=== PATIENT | female | born 1955 | race Caucasian/White ===

== ENCOUNTER 2017-06-21 11:35 | Emergency (ER) | payer OTHER ==
[~2017-06-21] VITALS: Ht 165.1 cm; Wt 68.0 kg
[~2017-06-21 11:35] MED LIST: NKM
[2017-06-21 11:55] VITALS: BP 126/85
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
[2017-06-21] MEDS ORDERED: LORazepam Inj 2mg/ml 1ml IV ONE (12:00)
[2017-06-21] MEDS ORDERED: Morphine Sulfate 4mg/ml Inj IVP ONE (12:00)
[2017-06-21 12:23] LABS: BASOPHILS % (AUTO) 1.5 % (0.0-2.0); EOSINOPHILS % (AUTO) 2.6 % (0.0-3.0); LYMPHOCYTES % (AUTO) 26.1 % (20.0-45.0); MEAN CORPUSCULAR HEMOGLOBIN 32.2 PG (27.0-31.0); MEAN CORPUSCULAR VOLUME 95 FL (80-99); MEAN PLATELET VOLUME 6.7 FL (6.5-10.1); MONOCYTES % (AUTO) 7.1 % (1.0-10.0); NEUTROPHILS % (AUTO) 62.7 % (45.0-75.0); PLATELET COUNT 273 K/UL (150-450); RED BLOOD COUNT 3.93 M/UL (4.20-5.40); RED CELL DISTRIBUTION WIDTH 11.8 % (11.6-14.8); WHITE BLOOD COUNT 5.6 K/UL (4.8-10.8)
[2017-06-21 12:41] LABS: ALANINE AMINOTRANSFERASE 15 U/L (3-33); ALBUMIN/GLOBULIN RATIO 1.5 (1.0-2.7); ANION GAP 12 (5-15); ASPARTATE AMINO TRANSFERASE 28 U/L (5-40); CALCIUM 9.2 mg/dL (8.6-10.2); CARBON DIOXIDE 26 mEQ/L (20-30); CHLORIDE 100 mEQ/L (98-107); CREATININE 0.6 mg/dL (0.5-0.9); GLOMERULAR FILTRATION RATE > 60 mL/min (>60); HEMOLYSIS 1; LIPASE 31 U/L (< 60); POTASSIUM 3.8 mEQ/L (3.4-4.9); SODIUM 138 mEQ/L (135-145); TOTAL PROTEIN 7.1 g/dL (6.6-8.7)
[2017-06-21] MEDS ORDERED: REGLAN5 MG ORAL (13:46)
--- NOTE | 2017-06-21 13:51 | Diagnostic Imaging Report ---
Indications: Periumbilical lower abdominal pain Technique: Continuous helical CT imaging of the abdomen and pelvis was performed with automatic exposure control following administration of nonionic IV contrast only, on a Siemens sensation [address] scanner. Axial, coronal, sagittal images were reconstructed at 5 mm slice thickness. No oral contrast was administered per requesting physician's order, despite no contraindications listed. CTDI volume(s): 18 mGy Total DLP: 1036 mGy-cm Findings: Comparison: None Lack of oral contrast limits evaluation of gastrointestinal tract, nondilated throughout. Small hiatal hernia. Mild haziness throughout left abdominal mesentery. Mild mural thickening of one or more small bowel loops not excludable. Appendix unremarkable. No digital obvious mural thickening or adjacent stranding, extraluminal gas or fluid collections identified. Gallbladder distended. No obvious mural thickening or adjacent inflammation. Mild prominence of bile ducts without obvious associated stone or mass. 1 cm enhancing mass in anterior uterine myometrium. Liver, pancreas, spleen, adrenal glands, kidneys, unopacified ureters and urinary bladder, bilateral adnexal regions, vascular structures, retroperitoneum, mesentery, remainder visualized abdominopelvic anatomy unremarkable. Interstitial infiltrates and more discrete pleural-based linear densities and dependent portions both lung bases. Heart enlarged. L5-S1 disc space narrowing with marginal osteophyte formation, vacuum phenomenon.. IMPRESSION: Small bowel and mesenteric findings as described suggest mild enteritis. Gallbladder distention without obvious acute inflammation. Correlate clinically. Mild bile duct prominence without obvious obstructive etiology. Correlate clinically. No other evidence of acute abdominopelvic disease, with limitation as described. Subtle but potentially significant abnormalities the gastrointestinal tract may be missed. Repeat CT scan with full oral and IV contrast preparation recommended for more complete evaluation, as clinically indicated Oval small uterine fibroid Pulmonary bibasal subsegmental atelectasis, superimposed nonspecific interstitial infiltrates Cardiomegaly Degenerative spondylosis
[2017-06-21 14:00] VITALS: BP 158/79
[2017-06-21 14:15] VITALS: BP 158/79
== END 2017-06-21 14:15 | disposition home or self-care (01) ==
LOC: EDBD 11:35 → EMR 12:10
DX: R10.9 Unspecified abdominal pain (principal); R11.10 Vomiting, unspecified; R51 Headache; D25.9 Leiomyoma of uterus, unspecified; I51.7 Cardiomegaly; M47.9 Spondylosis, unspecified; J98.11 Atelectasis
CPT/HCPCS: 36415; 74177; 80053; 83690; 85025; 96374; 96375; 99284; J2270; J2405; Q9967

== ENCOUNTER 2017-07-05 10:55 | Emergency (ER) | payer OTHER ==
[~2017-07-05] VITALS: Ht 170.2 cm; Wt 61.2 kg
[~2017-07-05 10:55] MED LIST changes: +REGLAN5 MG ORAL
[2017-07-05] MEDS ORDERED: Acetaminophen 500mg (ES) tab PO ONE (11:15)
--- NOTE | 2017-07-05 12:33 | Diagnostic Imaging Report ---
Indication: Pain Comparison: None Findings: 3 views of the right foot were obtained. Bones are osteopenic. There is a bunion in the area of the first MTP joint. There is a mild hallux valgus deformity noted. Plantar calcaneal spur noted. There is no fracture identified. Impression: No acute injury identified.
[2017-07-05] MEDS ORDERED: TYLENOL EXTRA500 MG ORAL (12:42)
[2017-07-05 12:45] VITALS: BP 161/115
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
== END 2017-07-05 13:12 | disposition home or self-care (01) ==
LOC: EMR 11:10
DX: S90.211A Contusion of right great toe with damage to nail, initial encounter (principal); X58.XXXA Exposure to other specified factors, initial encounter; Y93.9 Activity, unspecified; Y99.9 Unspecified external cause status; M79.674 Pain in right toe(s); K29.70 Gastritis, unspecified, without bleeding
CPT/HCPCS: 99283

== ENCOUNTER 2017-08-08 11:17 | Emergency (ER) | payer OTHER ==
[~2017-08-08] VITALS: Ht 167.6 cm; Wt 61.2 kg
[~2017-08-08 11:17] MED LIST changes: +TYLENOL EXTRA500 MG ORAL
[2017-08-08] MEDS ORDERED: Acetaminophen 500mg (ES) tab PO ONE (12:00)
[2017-08-08] MEDS ORDERED: TYLENOL EXTRA500 MG ORAL (12:47)
[2017-08-08 13:05] VITALS: BP 120/80
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
--- NOTE | 2017-08-08 14:28 | Diagnostic Imaging Report ---
Indication: Pain Comparison: None Findings: 3 views of the right foot were obtained. No acute fractures, malalignment, erosions or periostitis are identified. Soft tissues are unremarkable. Outside is noted. Impression: No acute findings.
== END 2017-08-08 13:07 | disposition home or self-care (01) ==
LOC: EMR 11:50
DX: S90.31XA Contusion of right foot, initial encounter (principal); V09.9XXA Pedestrian injured in unspecified transport accident, initial encounter; Y93.9 Activity, unspecified; Y99.9 Unspecified external cause status; K29.70 Gastritis, unspecified, without bleeding; K21.9 Gastro-esophageal reflux disease without esophagitis
CPT/HCPCS: 99283

== ENCOUNTER 2017-08-29 08:44 | Emergency (ER) | payer OTHER ==
[~2017-08-29] VITALS: Ht 167.6 cm; Wt 59.0 kg
[2017-08-29] MEDS ORDERED: AMOXICILLIN500 MG ORAL (09:30)
--- NOTE | 2017-08-29 09:43 | Emergency Room Report ---
History of Present Illness General Chief Complaint: Upper Respiratory Illness Source: Patient, Medical Record Present Illness HPI 62-year-old female presents to ED for evaluation. States her last 3 days she's been having a cough with sore throat. Feels congested. Denies fevers or chills. States cough is productive with greenish sputum. Denies sick contacts or recent travel. Denies chest pain or shortness of breath. States that she did receive a flu vaccine last month. No other aggravating relieving factors. Denies any other associated symptoms Allergies: Coded Allergies: No Known Allergies (Unverified , 04/07/13) Patient History Past Medical History: GERD Past Surgical History: none Pertinent Family History: none Social History: Denies: smoking, alcohol use, drug use Last Menstrual Period: Post Now: No Immunizations: UTD Reviewed Nursing Documentation: PMH: Agreed, PSxH: Agreed Nursing Documentation-PMH Hx Cardiac Problems: No Hx Pacemaker: No Hx Asthma: Yes - Pneumonia Hx COPD: No Hx Diabetes: No Hx Cancer: No Hx Gastrointestinal Problems: Yes - Gastritis Hx Dialysis: No Hx Neurological Problems: No Hx Cerebrovascular Accident: No Hx Seizures: No Review of Systems All Other Systems: negative except mentioned in HPI Physical Exam Vital Signs Date Time Temp Pulse Resp B/P (MAP) Pulse Ox O2 Delivery O2 Flow Rate FiO2 08/29/17 08:47 99.3 101 21 154/90 97 Room Air Sp02 EP Interpretation: reviewed, normal General Appearance: no apparent distress, alert, GCS 15, non-toxic Head: normocephalic, atraumatic Eyes: bilateral eye normal inspection, bilateral eye PERRL ENT: hearing grossly normal, no angioedema, normal voice, TMs + canals normal, pharyngeal erythema, tonsillar exudate Neck: full range of motion, supple/symm/no masses Respiratory: chest non-tender, lungs clear, normal breath sounds, speaking full sentences Cardiovascular #1: regular rate, rhythm, no edema Cardiovascular #2: 2+ carotid (R), 2+ carotid (L), 2+ radial (R), 2+ radial (L) , 2+ dorsalis pedis (R), 2+ dorsalis pedis (L) Gastrointestinal: normal bowel sounds, non tender, soft, non-distended, no guarding, no rebound Rectal: deferred Genitourinary: normal inspection, no CVA tenderness Musculoskeletal: back normal, gait/station normal, normal range of motion, non- tender Neurologic: alert, oriented x3, responsive, motor strength/tone normal, sensory intact, speech normal Psychiatric: judgement/insight normal, memory normal, mood/affect normal, no suicidal/homicidal ideation Reflexes: 3+ bicep (R), 3+ bicep (L), 3+ tricep (R), 3+ tricep (L), 3+ knee (R) , 3+ knee (L) Skin: normal color, no rash, warm/dry, well hydrated Lymphatic: no adenopathy Medical Decision Making Diagnostic Impression: Primary Impression: Pharyngitis Qualified Codes: J02.9 - Acute pharyngitis, unspecified ER Course Hospital Course 62-year-old female presents to ED complaining of sore throat + cough Differential diagnoses include: URI, pharyngitis, otitis media Clinical course Patient placed on stretcher. After initial history, physical exam reveals an elderly female in no acute distress. Bilateral TM unremarkable. There is pharyngeal erythema w/ tonsillar exudates. No lymphadenopathy. Clinical findings consistent with pharyngitis Diagnosis - pharyngitis Stable and discharged home with prescriptions for amoxicillin. Instructed to followup with PMD. return to ED if symptoms recur or worsen Last Vital Signs Date Time Temp Pulse Resp B/P (MAP) Pulse Ox O2 Delivery O2 Flow Rate FiO2 08/29/17 08:57 98 21 Room Air 08/29/17 08:47 99.3 154/90 97 Status: improved Disposition: HOME, SELF-CARE Condition: Stable Scripts Amoxicillin* (AMOXIL*) 500 Mg Capsule 500 MG ORAL THREE TIMES A DAY, #21 CAP Prov: LEXI NICHOLSON M.D. 08/29/17 Departure Forms: Return to School Return to School On: Aug 31, 2017 School Release Restrictions: None Patient Instructions: Pharyngitis [id number] LEXI NICHOLSON M.D. Aug 29, 2017 09:43
[2017-08-29 09:45] VITALS: BP 140/75
== END 2017-08-29 09:45 | disposition home or self-care (01) ==
LOC: EMR 09:12
DX: J02.9 Acute pharyngitis, unspecified (principal); J45.909 Unspecified asthma, uncomplicated
CPT/HCPCS: 99283

== ENCOUNTER 2017-12-15 12:36 | Emergency (ER) | payer OTHER ==
[~2017-12-15] VITALS: Ht 167.6 cm; Wt 61.2 kg
[~2017-12-15 12:36] MED LIST changes: +AMOXICILLIN500 MG ORAL
[2017-12-15] MEDS ORDERED: Albuterol/Ipratropium 3ml neb HHN ONE (13:15)
[2017-12-15] MEDS ORDERED: ALBUTEROL SULF8.5 GM INH (13:31)
[2017-12-15] MEDS ORDERED: ZITHROMAX250 MG ORAL (13:31)
[2017-12-15 13:39] VITALS: BP 187/115
[2017-12-15 14:11] VITALS: BP 187/115
--- NOTE | 2017-12-16 11:00 | Diagnostic Imaging Report ---
Indication: Shortness of breath Technique: XRAY Chest 1v Comparison: None Findings: Heart size and mediastinal contours are within normal limits. There is subtle asymmetric opacity in the right upper lung. These may be related to the infectious infiltrate. No pleural effusion or pneumothorax. Impression: Subtle hazy opacity in the right upper lung may represent infectious infiltrate. Clinical correlation and follow-up chest x-ray after appropriate treatment recommended to assess resolution. Findings and follow-up imaging recommendations discussed with Dr. CUELLO of the ED 12/16/17.
--- NOTE | 2017-12-16 11:40 | Emergency Room Report ---
History of Present Illness General Chief Complaint: Upper Respiratory Illness Present Illness Allergies: Coded Allergies: No Known Allergies (Unverified , 04/07/13) Nursing Documentation-PMH Hx Cardiac Problems: No Hx Pacemaker: No Hx Asthma: No - Pneumonia Hx COPD: No Hx Diabetes: No Hx Cancer: No Hx Gastrointestinal Problems: No Hx Dialysis: No Hx Neurological Problems: No Hx Cerebrovascular Accident: No Hx Seizures: No Physical Exam Vital Signs Date Time Temp Pulse Resp B/P (MAP) Pulse Ox O2 Delivery O2 Flow Rate FiO2 12/15/17 12:43 98.1 99 22 187/115 94 Room Air 12/15/17 13:49 21 Medical Decision Making ER Course Please note that we received a phone call from radiology Requesting the patient make sure to followup with the x-ray to make sure it is clearing and that there is no other acute pathology Patient was contacted at the phone number provided She did call the emergency room back She was notified about the need to repeat the x-ray in about one week to reevaluate the lungs given the radiology concerns Patient understands that reports that she started to feel better and will followup closely Last Vital Signs Date Time Temp Pulse Resp B/P (MAP) Pulse Ox O2 Delivery O2 Flow Rate FiO2 12/15/17 14:11 98.1 99 24 187/115 99 Room Air 21 Disposition: HOME, SELF-CARE Condition: Stable Scripts Albuterol Sulfate* (ALBUTEROL SULFATE MDI*) 8.5 Gm Hfa.aer.ad 2 PUFF INH Q6H, #1 INH 0 Refills Prov: Andrei Nguyễn 12/15/17 Azithromycin* (ZITHROMAX*) 250 Mg Tablet 250 MG ORAL DAILY, #6 TAB 0 Refills Take two tables once daily for 1 day, then one tablet once daily for 4 days. Prov: Andrei Nguyễn 12/15/17 Referrals: [facility],REFERRING (PCP) Patient Instructions: Community-Acquired Pneumonia, Adult LISA CUELLO D.O. Dec 16, 2017 11:40
--- NOTE | 2017-12-16 13:22 | Emergency Room Report ---
History of Present Illness General Chief Complaint: Upper Respiratory Illness Present Illness HPI Patient is a 62-year-old female who presented after increased cough difficulty breathing. The patient gradual onset of symptoms. Patient reports having cough which was productive for several months. The patient denies prior history of asthma or smoking. She reported having initial fever. The patient was having continued cough which is intermittently productive. She denied any hemoptysis or chest pain. She denies any facial pain or nasal drainage. Allergies: Coded Allergies: No Known Allergies (Unverified , 04/07/13) Patient History Past Medical History: see triage record Reviewed Nursing Documentation: PMH: Agreed, PSxH: Agreed Nursing Documentation-PMH Hx Cardiac Problems: No Hx Pacemaker: No Hx Asthma: No - Pneumonia Hx COPD: No Hx Diabetes: No Hx Cancer: No Hx Gastrointestinal Problems: No Hx Dialysis: No Hx Neurological Problems: No Hx Cerebrovascular Accident: No Hx Seizures: No Review of Systems All Other Systems: negative except mentioned in HPI Physical Exam Vital Signs Date Time Temp Pulse Resp B/P (MAP) Pulse Ox O2 Delivery O2 Flow Rate FiO2 12/15/17 12:43 98.1 99 22 187/115 94 Room Air 12/15/17 13:49 21 General Appearance: well appearing, no apparent distress, alert, GCS 15 Head: normocephalic, atraumatic ENT: hearing grossly normal, normal voice Neck: full range of motion, supple Respiratory: no respiratory distress, speaking full sentences, wheezing, expiration Cardiovascular #1: normal peripheral pulses, regular rate, rhythm, no edema Gastrointestinal: normal inspection Musculoskeletal: normal inspection, back normal, gait/station normal, no calf tenderness Neurologic: normal inspection, alert, oriented x3, responsive, accounts payable specialist III-XII nml as tested, normal gait Psychiatric: mood/affect normal Skin: no rash Medical Decision Making Diagnostic Impression: Primary Impression: Pneumonia ER Course Patient presented for cough. Differential diagnosis included but was not limited to bronchitis, pneumonia, pulmonary embolism, pericarditis, asthma, foreign body. Because of complexity of patient's case imaging studies were ordered. The patient noted be mildly wheezing and given breathing treatment with improvement. Patient was given prescription for azithromycin as well as albuterol for pneumonia. The patient is advised to seek primary care physician. she was advised followup for reexamination in the next few days. Patient is advised to return if any worsening condition or if any changes in status that are concerning. This report is dictated with [employer] stock turner software which may occasionally lead to discrepancies related to use of this software. Last Vital Signs Date Time Temp Pulse Resp B/P (MAP) Pulse Ox O2 Delivery O2 Flow Rate FiO2 12/15/17 14:11 98.1 99 24 187/115 99 Room Air 21 Status: improved Disposition: HOME, SELF-CARE Condition: Stable Scripts Albuterol Sulfate* (ALBUTEROL SULFATE MDI*) 8.5 Gm Hfa.aer.ad 2 PUFF INH Q6H, #1 INH 0 Refills Prov: Andrei Nguyễn 12/15/17 Azithromycin* (ZITHROMAX*) 250 Mg Tablet 250 MG ORAL DAILY, #6 TAB 0 Refills Take two tables once daily for 1 day, then one tablet once daily for 4 days. Prov: Andrei Nguyễn 12/15/17 Referrals: [facility],REFERRING (PCP) Patient Instructions: Community-Acquired Pneumonia, Adult Andrei Nguyễn Dec 16, 2017 13:22
== END 2017-12-15 14:21 | disposition home or self-care (01) ==
LOC: EMR 13:05
DX: J18.8 Other pneumonia, unspecified organism (principal)
CPT/HCPCS: 71045; 94640; 94664; 99284; J7620

== ENCOUNTER 2017-12-20 09:31 | Emergency (ER) | payer OTHER ==
[~2017-12-20] VITALS: Ht 167.6 cm; Wt 61.2 kg
[~2017-12-20 09:31] MED LIST changes: +ALBUTEROL SULF8.5 GM INH; +ZITHROMAX250 MG ORAL
[2017-12-20 09:56] VITALS: BP 168/90
--- NOTE | 2017-12-20 10:03 | Emergency Room Report ---
History of Present Illness General Chief Complaint: General Complaint Source: Patient Present Illness HPI [id number] here for re-eval, repeat CXR after call by Dr Vick Taking Z-pack and albuterol for suspected PNA Feels better Denies fever/chills Dry cough now Allergies: Coded Allergies: No Known Allergies (Unverified , 04/07/13) Patient History Past Medical History: none Past Surgical History: none Pertinent Family History: none Social History: Denies: smoking, alcohol use, drug use Now: No Immunizations: UTD Reviewed Nursing Documentation: PMH: Agreed, PSxH: Agreed Nursing Documentation-PMH Past Medical History: No History, Except For Hx Cardiac Problems: No Hx Hypertension: No Hx Pacemaker: No Hx Asthma: No - Pneumonia Hx COPD: No Hx Diabetes: No Hx Cancer: No Hx Gastrointestinal Problems: No Hx Dialysis: No Hx Neurological Problems: No Hx Cerebrovascular Accident: No Hx Seizures: No Review of Systems All Other Systems: negative except mentioned in HPI Physical Exam Vital Signs Date Time Temp Pulse Resp B/P (MAP) Pulse Ox O2 Delivery O2 Flow Rate FiO2 12/20/17 09:41 97.9 95 18 168/90 94 Room Air 97.9 Sp02 EP Interpretation: reviewed, normal General Appearance: normal inspection, well appearing, no apparent distress, alert, GCS 15, non-toxic Head: normocephalic, atraumatic Eyes: bilateral eye PERRL, bilateral eye EOMI ENT: normal ENT inspection, hearing grossly normal, normal pharynx, no angioedema, normal voice, TMs + canals normal, uvula midline, moist mucus membranes Neck: normal inspection, full range of motion, supple, thyroid normal, no meningismus, no bony tend Respiratory: normal inspection, lungs clear, normal breath sounds, no rhonchi, no respiratory distress, no retraction, no accessory muscle use, no wheezing, speaking full sentences Cardiovascular #1: regular rate, rhythm, no edema, no JVD, normal capillary refill Gastrointestinal: normal inspection, normal bowel sounds, non tender, soft, no mass, no peritonitis, non-distended, no guarding, no hernia, no pulsatile mass Genitourinary: no CVA tenderness Musculoskeletal: normal inspection, back normal, normal range of motion, no calf tenderness, pelvis stable, Loida's Sign negative Neurologic: normal inspection, alert, oriented x3, responsive, em physician III-XII nml as tested, motor strength/tone normal, cerebellar normal, normal gait, speech normal Psychiatric: normal inspection, judgement/insight normal, mood/affect normal, no suicidal/homicidal ideation, no delusions Skin: normal inspection, normal color, no rash Lymphatic: normal inspection, no adenopathy Medical Decision Making Diagnostic Impression: Primary Impression: Cough ER Course CXR: I do not see a right upper lobe hazy opacity as reported by Radiologist on previous study. In any event, no acute worsening per CXR Patient already took Abx for CAP Feeling better Advised albuterol for continued bronchitis I suspect URI/bronchitis more than PNA as cause of her symptoms ER course: Patient has remained stable during ED stay. Disposition: Patient is to be discharged to home. Patient is instructed to follow up with their primary care doctor within 5 days. Strict return precautions discussed with patient such as fever, chills, worsening/severe pain, nausea, vomiting, which may indicate severe illness. Patient verbalizes understanding and agrees with plan. Please note that this Emergency Department Report was dictated using [employer] processing clerk technology software, occasionally this can lead to erroneous entry secondary to interpretation by the dictation equipment Chest X-Ray Diagnostic Results Chest X-Ray Diagnostic Results : Chest X-Ray Ordered: Yes # of Views/Limited/Complete: 1 View Indication: Shortness of Breath EP Interpretation: Yes Interpretation: no consolidation, no effusion, no pneumothorax, no acute cardiopulmonary disease Impression: No acute disease Electronically Signed by: Dr Elisa Solorio mD Last Vital Signs Date Time Temp Pulse Resp B/P (MAP) Pulse Ox O2 Delivery O2 Flow Rate FiO2 12/20/17 09:56 97.9 95 18 168/90 94 Room Air 97.9 Status: improved Disposition: HOME, SELF-CARE ELISA SOLORIO M.D. Dec 20, 2017 10:03
[2017-12-20 10:21] VITALS: BP 160/88
--- NOTE | 2017-12-20 11:37 | Diagnostic Imaging Report ---
Indication: Dyspnea Comparison: 12/15/2017 A single view chest radiograph was obtained. Findings: No definite infiltrate or pulmonary vascular congestion identified. The heart is enlarged. The aorta is mildly enlarged consistent with atherosclerotic vascular disease. The bones are osteopenic. Impression: No acute disease
== END 2017-12-20 10:27 | disposition home or self-care (01) ==
LOC: EMR 10:09
DX: R05 Cough (principal)
CPT/HCPCS: 71045; 99283

== ENCOUNTER 2018-01-09 20:15 | Emergency (ER) | payer OTHER ==
[~2018-01-09] VITALS: Ht 167.6 cm; Wt 61.2 kg
[2018-01-09 20:30] VITALS: BP 183/94
[2018-01-09 21:00] VITALS: BP 156/95
[2018-01-09 21:25] LABS: APPEARANCE,URINE CLEAR; BILIRUBIN, URINE NEGATIVE (NEGATIVE); COLOR,URINE PALE YELLOW; GLUCOSE, URINE (UA) NEGATIVE (NEGATIVE); KETONES,URINE NEGATIVE (NEGATIVE); LEUKOCYTE ESTERASE ,URINE 1+ (NEGATIVE); NITRITE,URINE NEGATIVE (NEGATIVE); PH,URINE 7 (4.5-8.0); PROTEIN,URINE NEGATIVE (NEGATIVE); UROBILINOGEN,URINE NORMAL MG/DL (0.0-1.0)
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
[2018-01-09 21:56] VITALS: BP 156/95
--- NOTE | 2018-01-13 16:21 | Cardiology Report ---
APPROVED REPORT EKG Measurement Heart [id number] Normal sinus rhythm Possible Left atrial enlargement Borderline ECG
== END 2018-01-09 21:56 | disposition home or self-care (01) ==
LOC: EMR 20:50
DX: G43.909 Migraine, unspecified, not intractable, without status migrainosus (principal); F43.9 Reaction to severe stress, unspecified; I10 Essential (primary) hypertension
CPT/HCPCS: 81003; 93005; 99282